=== PATIENT | male | born 1960 | race Caucasian/White ===

== ENCOUNTER 2020-10-31 11:16 | Outpatient (CLI) | payer OTHER, SELFPAY | END 2020-10-31 11:17 | disposition home or self-care (01) | PROVIDERS: PCP Family Medicine | DX: Z23 Encounter for immunization (principal) | CPT/HCPCS: 0001A; 91300 ==

== ENCOUNTER 2020-11-21 11:15 | Outpatient (CLI) | payer OTHER, SELFPAY | END 2020-11-21 11:16 | disposition home or self-care (01) | LOC: ANHCOVIDVC 11:15 | PROVIDERS: PCP Family Medicine | DX: Z23 Encounter for immunization (principal) | CPT/HCPCS: 0002A; 91300 ==

== ENCOUNTER 2021-10-13 07:46 | Emergency (ER) | payer MEDICARE, OTHER, SELFPAY ==
[2021-10-13] VITALS (17 sets, daily range): BP systolic 159–213; BP diastolic 98–124; PULSE 63–82; RESP 4–24; TEMP 36.5; O2SAT 95–100
--- NOTE | ~2021-10-13 | CT_ITS ---
EXAMINATION: CT brain wo con DATE: 10/13/2021 08:17 INDICATION: Headache TECHNIQUE: Computed tomography (CT) of the head was performed without intravenous contrast. The dose- length product was 605.33 mGy-cm. COMPARISON: CT dated 09/18/2015 FINDINGS: No acute intracranial hemorrhage, infarction, mass or mass effect. Normal cabrera-white differ entiation. No ventriculomegaly or midline shift. Basilar cisterns are patent. Paranasal sinuses and r ight mastoid air cells are pneumatized. Small left mastoid effusion. No depressed skull fractures. IMPRESSION: 1. No acute intracranial abnormality. Reviewed, dictated and finalized at location A. [employer]
--- NOTE | 2021-10-13 08:01 | ED.HA ---
HPI - Headache General Chief Complaint: Headache Stated Complaint: high BP Time Seen by Provider: 10/13/21 08:01 Source: patient Mode of arrival: ambulatory Limitations: no limitations History of Present Illness HPI Narrative: The patient is a 61-year-old male with a history of hypertension presenting to the emergency department for evaluation of headache. Patient states he has had a worsening headache over the past 72 hours with elevated systolic blood pressures in the 190s to 200s. Patient states that he previously had been on lisinopril as well as metoprolol for his blood pressure, but discontinued this due to insurance constraints in 2019 and has not been on any medication over the past 2 years. Patient states he has not seen a physician in this time. Patient reports mild, dull aching headache in the back of his head and front near the temples. Denies significant neck pain. No thunderclap sensation. Denies vision changes, nausea, vomiting. Denies neck pain, chest pain, shoulder pain. Denies any shortness of breath. Patient has been taking aspirin without much improvement in his symptoms. Related Data Allergies Allergy/AdvReac Type Severity Reaction Status Date / Time naproxen Allergy Unknown unknown Verified 06/28/19 09:17 penicillin V Allergy Unknown unknown Verified 06/28/19 09:17 Penicillins Allergy Unknown unknown Verified 06/28/19 09:17 Review of Systems Review of Systems: CONSTITUTIONAL: Denies fever, chills, or sweats. EYES: Denies visual changes, redness, or discharge. ENT: Denies rhinorrhea, congestion, sore throat, or otalgia. CARDIOVASCULAR: Denies chest pain, palpitations, or edema. RESPIRATORY: Denies cough or dyspnea. GASTROINTESTINAL: Denies abdominal pain, nausea, vomiting, or diarrhea. GENITOURINARY: Denies dysuria or hematuria. SKIN: Denies rash or itching. MUSCULOSKELETAL: Denies back pain, joint pain, or myalgia. NEUROLOGIC: Reports headache without focal numbness or weakness, no difficulty with ambulation PSYCHIATRIC: Denies anxiety or depression. [facility] Surgical History Surgical History (Updated 10/13/21 @ 08:35 by Lisa Sands MD) History of knee replacement Family History Family History Father Hypertension Family history of elevated blood lipids Family history of coronary artery disease Mother Hypertension Family history of elevated blood lipids Family history of diabetes mellitus in first degree relative Other Diabetes mellitus Family history of arthritis Family history of cardiovascular disease Social History Social History Smoking status: Never smoker Alcohol intake: never Exam Narrative: GENERAL: Awake, alert, conversant HEAD: Normocephalic, atraumatic. EYES: PERRLA and EOMI. ENT: Nares clear, no rhinorrhea or epistaxis. Mucous membranes moist. NECK: Supple. CHEST: No respiratory distress, breathing even and non labored HEART: Regular rate, sinus rhythm ABDOMEN:Non distended, non tender EXTREMITIES: Normal range of motion. No edema. SKIN: Warm, dry, no rash. NEURO:No focal deficits. Alert and oriented x3 Course Vital Signs Vital signs: Vital Signs Temperature 36.5 C 10/13/21 07:49 Pulse Rate 82 10/13/21 07:49 Respiratory Rate 12 10/13/21 07:49 Blood Pressure 213/124 H 10/13/21 07:49 Pulse Oximetry 99 10/13/21 07:49 Temperature 36.5 C 10/13/21 07:49 Pulse Rate 65 10/13/21 08:48 Respiratory Rate 13 10/13/21 07:51 Blood Pressure 213/124 H 10/13/21 07:51 Pulse Oximetry 98 10/13/21 07:51 MDM - Headache MDM Narrative Medical decision making narrative: Laboratory results are reassuring. Patient with reassuring imaging as well, no evidence of intracranial hemorrhage. No sign of stroke on exam. Patient without an elevation in troponin. His blood pressure down trended with treatment. I reviewed his laborat
--- NOTE | 2021-10-13 08:04 | ECG_ITS ---
Measurements Intervals [place] Rate: 71 P: 27 SC: 168 QRS: 39 QRSD: 97 T: 11 QT: 391 QTc: 427 Interpretive Statements SINUS RHYTHM NO PREVIOUS ECG AVAILABLE FOR COMPARISON Electronically Signed On 10-13-2021 12:26:38 [employer]ATION MANAGER by Jonny Stone M.D.
[2021-10-13] MEDS: METOPROLOL TARTRATE INJ 5 MG/5 ML VIAL IV PUSH (08:08)
[2021-10-13] MEDS: ACETAMINOPHEN 500 MG TABLET 1000 MG PO (08:48)
[2021-10-13] MEDS: METOPROLOL TARTRATE 50 MG TAB 25 MG PO (08:48)
[2021-10-13] MEDS: lisinopriL 10 MG TABLET PO (08:49)
[2021-10-13 08:59] LABS: Basophils Percent Auto 0.6 % (0.2-1.2); Eosinophils Absolute Auto 0.1 K/mm3 (0-0.3); Eosinophils Percent Auto 1.3 % (0-4.4); Hematocrit 43.5 % (42.0-52.0); Hemoglobin 15.1 g/dL (14.0-18.0); Immature Granulocyte Absolute 0.02 K/mm3 (0.00-0.031); Immature Granulocyte Percent A 0.4 % (0-0.5); Lymphocytes Absolute Auto 1.62 K/mm3 (0.9-3.2); Lymphocytes Percent Auto 30.5 % (18.3-44.2); Mean Corpuscular HGB Conc 34.7 g/dl (32-36); Mean Corpuscular Hemoglobin 29.6 pg (26-34); Mean Corpuscular Volume 85.3 fl (80-100); Mean Platelet Volume 10.6 fl (7.4-10.4); Monocytes Absolute Auto 0.4 K/mm3 (0.1-0.6); Monocytes Percent Auto 7.5 % (2.6-8.5); Neutrophils Absolute Auto 3.2 K/mm3 (1.3-6.7); Neutrophils Percent Auto 59.7 % (45.5-73.1); Platelet Count Result 204 k/mm3 (150-375); Red Cell Distribution Width 12.7 % (11.5-14.5); White Blood Count 5.3 K/mm3 (4.5-10.0)
[2021-10-13 09:01] LABS: Anion Gap 8 mmol/L (8-16); Blood Urea Nitrogen 15 mg/dL (9-20); Calcium 8.9 mg/dL (8.4-10.2); Carbon Dioxide 27 mmol/L (22-30); Chloride 99 mmol/L (98-107); Estimated CRCL calculation 117 ml/min; Estimated Glomerular Filt Rate > 60; Glucose 301 mg/dL (65-110); Potassium 4.1 mmol/L (3.4-5.0); Sodium 134 mmol/L (137-145)
[2021-10-13 09:02] LABS: Add Urine Microscopic? YES; Appearance Urine Clear (Clear); Bilirubin Urine Negative (Negative); Blood Urine Negative (Negative); Color Urine Yellow (Yellow); Glucose Urine UA 3+ mg/dL (Negative); Ketones Urine Trace mg/dL (Negative); Leukocyte Esterase Ur Negative LEU/UL (Negative); Nitrate Urine Negative (Negative); Protein Urine 1+ mg/dL (Negative); Specific Grav Ur 1.022 (1.001-1.035); Urobilinogen Urine Negative mg/dL (<2.0); WBC Urine 0-3 /hpf
[2021-10-13 09:13] LABS: Troponin I < 0.012 ng/mL (0.000-0.034)
[2021-10-13] MEDS: KETOROLAC 15 MG/ML VIAL (*BKC) IV PUSH (09:23)
[2021-10-14 07:47] LABS: Hemoglobin A1C 10.2 % (<5.7)
== END 2021-10-13 10:30 | disposition home or self-care (01) ==
PROVIDERS: Emergency Provider Emergency Medicine; PCP Family Medicine
DX: R51.9 Headache, unspecified (principal); I16.9 Hypertensive crisis, unspecified; R73.9 Hyperglycemia, unspecified; I10 Essential (primary) hypertension; Z96.659 Presence of unspecified artificial knee joint
CPT/HCPCS: 36415; 70450; 80048; 81001; 83036; 84484; 85025; 93005; 96374; 96375; 99284; A9270; J1885

== ENCOUNTER 2022-02-03 13:25 | Outpatient (CLI) | payer MEDICARE, OTHER, SELFPAY ==
--- NOTE | 2022-02-03 13:37 | ECHO_ITS ---
Patient Info Name: Alexei Weston Age: 61 years : 1960 Gender: Male Ht: 73 in Wt: 337 lbs BSA: 2.88 m2 HR: 71 bpm BP: 151 / 90 mmHg Heart Rhythm: Sinus Rhythm Technical Quality: Fair Exam Date: 02/03/2022 1:56 PM Exam Location: [facility] Pulmonary Patient Status: Outpatient Admit Date: 02/03/2022 Staff Ordering Physician: Ajay Ahuja APRN Lost Charge Card Clerk: Jessica Giron RDCS Attending Provider: Ajay Ahuja APRN Referring Physician: Christa Fritz MD; Exam Type: CA echo doppler color flow Study Info Indications - SOB Complete two-dimensional, color flow and Doppler transthoracic echocardiogram is performed. Summary 1. Complete two-dimensional, color flow and Doppler transthoracic echocardiogram is performed. 2. Left ventricular chamber dimension is normal. 3. Left ventricular systolic function is normal, estimated at 55-60%. 4. There is mildly increased left ventricular wall thickness. 5. The left ventricular diastolic function is normal. 6. E/e' 7 is not elevated. 7. There is trace tricuspid valve regurgitation. 8. No pulmonary hypertension, estimated pulmonary arterial systolic pressure is 19 mmHg. Left Ventricle E/e' 7 is not elevated. Left ventricular chamber dimension is normal. Left ventricular systolic function is normal, estimated at 55-60%. There is mildly increased left ventricular wall thickness. The left ventricular diastolic function is normal. Right Ventricle Right ventricular systolic function is normal and with normal TAPSE 2.0 cm. Right ventricular chamber dimension is normal. Left Atria Left atrial chamber dimension is normal. Right Atria Right atrial chamber dimension is normal. Aortic Valve The aortic valve is trileaflet. There is no aortic valve stenosis. There is no aortic valve regurgitation. Pulmonic Valve There is no pulmonic regurgitation. Mitral Valve There is no mitral valve stenosis. There is no mitral valve regurgitation. Tricuspid Valve There is trace tricuspid valve regurgitation. No pulmonary hypertension, estimated pulmonary arterial systolic pressure is 19 mmHg. Pericardium/Pleural There is no pericardial effusion. Inferior Vena Cava Normal inferior vena cava with >50% collapse upon inspiration consistent with normal right atrial pressure, 5 mmHg. Aorta The aortic root size at the sinus of Valsalva is normal. Left Ventricular Outflow Tract Name Value Normal LVOT 2D LVOT Diameter 2.0 cm LVOT Doppler LVOT Peak Gradient 7 mmHg LVOT Mean Gradient 3 mmHg LVOT VTI 24 cm LVOT VTI/AV VTI Ratio 0.9 LVOT Stroke Volume 78 ml LVOT CO 4.7 l/min LVOT CI 1.6 l/min/m2 Pulmonic Valve Name Value Normal RVOT Doppler
[2022-02-03 14:29] LABS: Alanine Aminotransferase 27 U/L (6-50); Albumin Level 4.2 g/dL (3.5-5.1); Alkaline Phosphatase 47 U/L (38-126); Anion Gap 9 mmol/L (8-16); Aspartate Amino Transferase 25 U/L (17-59); Bilirubin,Total 0.3 mg/dL (0.2-1.3); Blood Urea Nitrogen 18 mg/dL (9-20); Calcium 9.1 mg/dL (8.4-10.2); Carbon Dioxide 25 mmol/L (22-30); Chloride 105 mmol/L (98-107); Estimated Glomerular Filt Rate > 60; Glucose 124 mg/dL (65-110); Potassium 3.8 mmol/L (3.4-5.0); Sodium 139 mmol/L (137-145)
[2022-02-03 15:30] LABS: Hemoglobin A1C 5.7 % (<5.7)
--- NOTE | 2022-02-04 14:01 | WPDSIXMINUTE ---
Six Minute Walk Procedure Procedure Performed Pulmonary Stress Test (6 min walk) Six Minute Walk Six Minute Walk: This 6 minute walk test was carried out with the patient breathing ambient air. The baseline pre walk oxyhemoglobin saturation was 97%. The patient walked over 396 m with no stops during testing. During the walk the oxyhemoglobin saturation remained 92% or higher. The perceived dyspnea on the Lynnette scale was 2 at baseline and increased to 3 at the end of the testing. Impression: No evidence of oxyhemoglobin desaturation on this testing.
--- NOTE | 2022-02-04 14:03 | P.PCNPFT_ITS ---
PFT Procedure Performed PFT Procedure Performed Spirometry with Pre/Post Bronchodilator Plethysmography (Lung Vol) Diffusing Cap (DLCO) Flow Vol Loop PFT Interpretation Lung volumes were measured with the body plethysmography method. Lung volumes are unremarkable. Spirometry showed diminished expiratory flow rates and a diminished FEV1 to FVC ratio 62%, consistent with obstructive airway disease. Following administration of a bronchodilator there was significant increase in the FEV1. Lung diffusion capacity is within the normal range at 99% predicted. Flow volume loop is consistent with obstructive airway disease. Impression: Mild obstructive airway disease with significant response to bronch odilators on this testing. Lung diffusion capacity within the normal range.
== END 2022-02-03 13:26 | disposition home or self-care (01) ==
PROVIDERS: PCP Family Medicine; Referring Provider Family Medicine; Visit Provider Nurse Practitioner Family
DX: R06.02 Shortness of breath (principal); E11.9 Type 2 diabetes mellitus without complications; I10 Essential (primary) hypertension; R94.2 Abnormal results of pulmonary function studies
CPT/HCPCS: 36415; 80053; 83036; 93306; 94060; 94618; 94726; 94729

== ENCOUNTER 2022-06-11 09:18 | Outpatient (CLI) | payer MEDICARE, OTHER, SELFPAY ==
[2022-06-11 10:01] LABS: Alanine Aminotransferase 28 U/L (6-50); Albumin Level 4.2 g/dL (3.5-5.1); Alkaline Phosphatase 45 U/L (38-126); Anion Gap 12 mmol/L (8-16); Aspartate Amino Transferase 28 U/L (17-59); Bilirubin,Total 0.6 mg/dL (0.2-1.3); Blood Urea Nitrogen 18 mg/dL (9-20); Calcium 8.9 mg/dL (8.4-10.2); Carbon Dioxide 26 mmol/L (22-30); Chloride 101 mmol/L (98-107); Cholesterol 148 mg/dL (0-200); Estimated Glomerular Filt Rate > 60; Glucose 100 mg/dL (65-110); HDL Direct 30 mg/dL; Potassium 3.9 mmol/L (3.4-5.0); Sodium 139 mmol/L (137-145); Triglycerides 209 mg/dL (<150)
[2022-06-11 10:12] LABS: LDL Cholesterol Direct 82 mg/dL
[2022-06-11 10:55] LABS: Hemoglobin A1C 5.9 % (<5.7)
[2022-06-11 11:22] LABS: MALB Creatinine Ratio 23.5 mg/g (0-30); Microalbumin Urine Random 19.5 mg/L (0-16.7)
== END 2022-06-11 09:19 | disposition home or self-care (01) ==
PROVIDERS: PCP Family Medicine; Visit Provider Physician Assistant
DX: E11.9 Type 2 diabetes mellitus without complications (principal); E78.2 Mixed hyperlipidemia; G47.33 Obstructive sleep apnea (adult) (pediatric); I10 Essential (primary) hypertension; R06.02 Shortness of breath
CPT/HCPCS: 36415; 80053; 80061; 82043; 83036; 84443

== ENCOUNTER 2022-07-21 01:44 | Day surgery (SDC) | payer MEDICARE, OTHER, SELFPAY ==
[2022-07-12 12:42] VITALS: BMI 42.4
[2022-07-21 07:47] VITALS: BP 143/92; PULSE 74; RESP 22; TEMP 36.4; O2SAT 96
[2022-07-21] MEDS: LACTATED RINGERS 1,000 ML 150 ML IV CONT (08:01)
[2022-07-21 08:03] LABS: Glucose Point of Care 111 mg/dl (65-105)
--- NOTE | 2022-07-21 08:54 | WPDANESEPPF ---
Anes - Initial Pre Proc Eval Procedure: Operation Date: 07/21/22 09:15 Proposed Procedures p Screening Colonoscopy - David Norton MD Date/Time: 07/21/22 08:54 Surgeon: David Norton MD Pre Op Diagnosis: neoplasm screening Patient Data Age: 62 Gender: M Height: 1.88 m Weight: 146.5 kg Last Vital Signs Temp 97.6 F 07/21/22 07:47 Pulse 74 07/21/22 07:47 Resp 22 H 07/21/22 07:47 BP 143/92 H 07/21/22 07:47 Pulse Ox 96 07/21/22 07:47 O2 Del Method Room Air 07/21/22 07:47 Allergies Allergy/AdvReac Type Severity Reaction Status Date / Time naproxen Allergy Unknown unknown Verified 07/21/22 07:45 penicillin V Allergy Unknown unknown Verified 07/21/22 07:45 Penicillins Allergy Unknown unknown Verified 07/21/22 07:45 budesonide AdvReac Unknown Verified 07/21/22 07:45 [From [employer]] formoterol AdvReac Unknown Verified 07/21/22 07:45 [From [email or web address]] glycopyrrolate AdvReac Unknown Verified 07/21/22 07:45 [From [employer]] Home Medications Medication Instructions Recorded Confirmed Type montelukast 10 mg tablet 10 mg PO QHS #90 tabs 01/06/22 07/12/22 Rx pen needle, diabetic 31 gauge x #100 ea 02/26/22 07/12/22 Rx 5/16 (BD Ultra-Fine Short Pen Needle) metoprolol succinate 50 mg See Rx Instructions .Route 03/11/22 07/12/22 Rx tablet,extended release 24 hr .COMPLEX #90 tabs Advair HFA 115 mcg-21 2 puff inhalation BID #12 grams 03/24/22 07/12/22 Rx mcg/actuation aerosol inhaler (fluticasone propion-salmeterol) inhalational spacing device #1 ea 03/24/22 07/12/22 Rx albuterol sulfate 90 mcg/actuation 1 - 2 inh inhalation Q4-6H PRN 06/10/22 07/12/22 Rx aerosol inhaler shortness of breath or wheezing #8.5 grams hydralazine 25 mg tablet 25 mg PO TID #90 tabs 06/10/22 07/12/22 Rx lisinopril 20 1 tablet PO DAILY #90 tabs 06/10/22 07/12/22 Rx mg-hydrochlorothiazide 12.5 mg tablet nitroglycerin 0.4 mg sublingual 0.4 mg sublingual Q15M PRN chest 06/10/22 07/12/22 Rx tablet pain #60 tabs metformin 1,000 mg tablet 1,000 mg PO BID #90 tabs 06/14/22 07/12/22 Rx insulin glargine 100 unit/mL (3 10 unit subcut QAM 07/12/22 07/12/22 History mL) subcutaneous pen (Basaglar KwikPen U-100 Insulin) Laboratory Tests 07/21/22 08:00 POC Capillary Glucose 111 mg/dl H mg/dl (65-105) Patient hx anesthesia problems: none Family hx anesthesia problems: none Results Review: All pre-operative results and documents have been reviewed as part of the pre-operative evaluation. [facility] Past Medical History Medical History Allergic asthma Benign essential HTN Borderline diabetes CAD (coronary artery disease) Low HDL (under 40) MDD (major depressive disorder) Surgical History Surgical History History of cardiac cath History of knee replacement 06/2018,. L knee 2013 right knee Family History Family History Father Hypertension Family history of elevated blood lipids Family history of coronary artery disease Mother Hypertension Family history of elevated blood lipids Family history of diabetes mellitus in first degree relative Other Diabetes mellitus Family history of arthritis Family history of cardiovascular disease Social History Social History Social History: Smoking status: Never smoker Second hand tobacco smoke exposure: No Alcohol intake: never Substance use: never Substance use type: does not use Living arrangements: with family Gender identity (if verbalized by the patient): Male Sexual Orientation (if Verbalized by the Patient): Straight or Heterosexual Spiritual care concerns: No Anes - Eval Final PreProcedur
--- NOTE | 2022-07-21 08:55 | PM.HPGS ---
History of Present Illness History of Present Illness Consent: Risks, benefits, and alternatives have been discussed and questions answered. Patient agrees to proceed with procedure. Chief complaint: neoplasm screening Narrative: Alexei Weston is a 62 year old male here for screening colonoscopy, last one over 10 years ago Review of Systems Constitutional: Constitutional: Denies headache(s) and Denies weakness Eyes: Eyes: Denies blurry vision ENT: Reports Normal hearing present, Denies headache(s) and Denies neck pain Cardiovascular: Cardiovascular: Denies chest pain and Denies dyspnea Respiratory: Respiratory: Denies dyspnea Gastrointestinal: Gastrointestinal: Reports no additional gastrointestinal complaints Genitourinary: Genitourinary: Denies dysuria Musculoskeletal: Musculoskeletal: Denies neck pain Integumentary/Breasts: Skin/Breast: Denies dry skin Neurologic: Reports Normal hearing present, Denies headache(s) and Denies weakness Psychiatric: Psychiatric: Denies anxiety Endocrine: Endocrine: Denies change in body appearance Hematologic/Lymphatic: Hematologic/Lymphatic: Denies easy bleeding Allergic/Immunologic: Allergic/Immunologic: Denies urticaria PMFSH Past Medical History Medical History Allergic asthma Benign essential HTN Borderline diabetes CAD (coronary artery disease) Low HDL (under 40) MDD (major depressive disorder) Surgical History Surgical History History of cardiac cath History of knee replacement 06/2018,. L knee 2013 right knee Family History Family History Father Hypertension Family history of elevated blood lipids Family history of coronary artery disease Mother Hypertension Family history of elevated blood lipids Family history of diabetes mellitus in first degree relative Other Diabetes mellitus Family history of arthritis Family history of cardiovascular disease Social History Social History Social History: Smoking status: Never smoker Second hand tobacco smoke exposure: No Alcohol intake: never Substance use: never Substance use type: does not use Living arrangements: with family Gender identity (if verbalized by the patient): Male Sexual Orientation (if Verbalized by the Patient): Straight or Heterosexual Spiritual care concerns: No Meds Home Medications and Allergies Home Medications Medication Instructions Recorded Confirmed Type montelukast 10 mg tablet 10 mg PO QHS #90 tabs 01/06/22 07/12/22 Rx pen needle, diabetic 31 gauge x #100 ea 02/26/22 07/12/22 Rx 5/16 (BD Ultra-Fine Short Pen Needle) metoprolol succinate 50 mg See Rx Instructions .Route 03/11/22 07/12/22 Rx tablet,extended release 24 hr .COMPLEX #90 tabs Advair HFA 115 mcg-21 2 puff inhalation BID #12 grams 03/24/22 07/12/22 Rx mcg/actuation aerosol inhaler (fluticasone propion-salmeterol) inhalational spacing device #1 ea 03/24/22 07/12/22 Rx albuterol sulfate 90 mcg/actuation 1 - 2 inh inhalation Q4-6H PRN 06/10/22 07/12/22 Rx aerosol inhaler shortness of breath or wheezing #8.5 grams hydralazine 25 mg tablet 25 mg PO TID #90 tabs 06/10/22 07/12/22 Rx lisinopril 20 1 tablet PO DAILY #90 tabs 06/10/22 07/12/22 Rx mg-hydrochlorothiazide 12.5 mg tablet nitroglycerin 0.4 mg sublingual 0.4 mg sublingual Q15M PRN chest 06/10/22 07/12/22 Rx tablet pain #60 tabs metformin 1,000 mg tablet 1,000 mg PO BID #90 tabs 06/14/22 07/12/22 Rx insulin glargine 100 unit/mL (3 10 unit subcut QAM 07/12/22 07/12/22 History mL) subcutaneous pen (Prietoar Tobias U-100 Insulin) Allergies Allergy/AdvReac Type Severity Reaction Status Date / Time naproxen Allergy Unknown unknown Verified 07/21/22 07:45
[2022-07-21 09:12] VITALS: BP 128/95; PULSE 57; RESP 29; O2SAT 98
[2022-07-21 09:22] VITALS: BP 112/85; PULSE 50; RESP 19; O2SAT 98
[2022-07-21 09:37] LABS: Glucose Point of Care 99 mg/dl (65-105)
== END 2022-07-21 09:42 | disposition home or self-care (01) ==
PROVIDERS: PCP Family Medicine; Visit Provider Internal Medicine Gastroenterology
PROC: 0DJD8ZZ Inspection of Lower Intestinal Tract, Via Natural or Artificial Opening Endoscopic (ICD-10-PCS; CPT 45378; principal; 2022-07-21 09:15)
DX: Z12.11 Encounter for screening for malignant neoplasm of colon (principal); K57.30 Diverticulosis of large intestine without perforation or abscess without bleeding; D12.4 Benign neoplasm of descending colon; K64.8 Other hemorrhoids; I10 Essential (primary) hypertension; I25.10 Atherosclerotic heart disease of native coronary artery without angina pectoris; J45.909 Unspecified asthma, uncomplicated; R73.03 Prediabetes; F32.A Depression, unspecified; E66.01 Morbid (severe) obesity due to excess calories; Z68.41 Body mass index [BMI] 40.0-44.9, adult; Z79.51 Long term (current) use of inhaled steroids; Z79.84 Long term (current) use of oral hypoglycemic drugs; Z79.4 Long term (current) use of insulin
CPT/HCPCS: 45385; 82948; 88305; J2704; J7120

== ENCOUNTER 2022-09-30 10:35 | Outpatient (CLI) | payer MEDICARE, OTHER, SELFPAY ==
[2022-09-30 11:20] LABS: Alanine Aminotransferase 37 U/L (6-50); Albumin Level 4.3 g/dL (3.5-5.1); Alkaline Phosphatase 43 U/L (38-126); Anion Gap 8 mmol/L (8-16); Aspartate Amino Transferase 32 U/L (17-59); Bilirubin,Total 0.6 mg/dL (0.2-1.3); Blood Urea Nitrogen 17 mg/dL (9-20); Calcium 8.8 mg/dL (8.4-10.2); Carbon Dioxide 23 mmol/L (22-30); Chloride 106 mmol/L (98-107); Estimated Glomerular Filt Rate > 60; Glucose 111 mg/dL (65-110); Potassium 3.9 mmol/L (3.4-5.0); Sodium 137 mmol/L (137-145)
[2022-09-30 12:20] LABS: MALB Creatinine Ratio 26.5 mg/g (0-30); Microalbumin Urine Random 14.6 mg/L (0-16.7)
[2022-09-30 13:27] LABS: Hemoglobin A1C 5.6 % (<5.7)
[2022-10-03 20:02] LABS: PSA, Free 0.12 ng/mL; PSA, Total 0.3 ng/mL (<=4.0)
== END 2022-09-30 10:36 | disposition home or self-care (01) ==
PROVIDERS: PCP Family Medicine; Visit Provider Family Medicine
DX: N40.1 Benign prostatic hyperplasia with lower urinary tract symptoms (principal); I10 Essential (primary) hypertension; E11.9 Type 2 diabetes mellitus without complications
CPT/HCPCS: 36415; 80053; 82043; 83036; 84153; 84154